=== PATIENT | female | born 1985 | race Hispanic/Latino ===

== ENCOUNTER 2017-01-21 05:24 | Emergency (ER) | payer SELFPAY ==
[~2017-01-21] VITALS: Ht 142.2 cm; Wt 65.0 kg
[~2017-01-21 05:24] MED LIST: CEPHALEXIN500 MG PO
[2017-01-21 06:01] VITALS: BP 95/60
== END 2017-01-21 06:20 | disposition left against medical advice (07) | DRG 951 ==
LOC: ED 05:24 → LWOBS 06:20
DX: Z91.19 Patient's noncompliance with other medical treatment and regimen (principal)

== ENCOUNTER 2018-12-09 14:17 | Emergency (ER) | payer SELFPAY ==
[~2018-12-09] VITALS: Ht 147.3 cm; Wt 72.7 kg
[~2018-12-09 14:17] MED LIST changes: +PRENATA3 PO
[2018-12-09] MEDS ORDERED: VANCOMYCIN HCL125 MG PO (15:41)
[2018-12-09 15:45] LABS: HEMATOCRIT 36.9 % (37.0-47.0); HEMOGLOBIN 12.7 g/dl (12.0-16.0); IMMATURE GRANULOCYTES 0.3 % (0.0-5.0); MEAN CELL VOLUME 89.1 fL CALC (80.0-100.0); MEAN CORPUSCULAR HGB 30.7 pG CALC (26.0-32.0); MEAN CORPUSCULAR HGB CONC 34.4 g/L CALC (32.0-36.0); NEUT# 4.22 thou/uL (2.00-7.15); RED BLOOD COUNT 4.14 mill/uL (4.20-5.60); RED CELL DISTRI WIDTH 12.6 % (11.5-15.5)
[2018-12-09 15:46] LABS: URINE BILIRUBIN - DIPSTICK NEGATIVE (NEGATIVE); URINE BLOOD DIPSTICK NEGATIVE (NEGATIVE); URINE COLOR YELLOW; URINE GLUCOSE - DIPSTICK NEGATIVE (NEGATIVE); URINE KETONE NEGATIVE (NEGATIVE); URINE LEUK ESTERASE NEGATIVE (NEGATIVE); URINE NITRITE - DIPSTICK NEGATIVE (Negative); URINE PROTEIN - DIPSTICK NEGATIVE (NEG-TRACE); URINE SPECIFIC GRAVITY <=1.005; URINE UROBILINOGEN - DIPSTICK 0.2 E.U./dL (0.2)
[2018-12-09 16:04] LABS: ALBUMIN 4.3 g/dL (3.2-5.0); ALKALINE PHOSPHATASE 69 u/l (38-126); ANION GAP 14 (6-22 (CALC)); BILIRUBIN, TOTAL 0.6 mg/dL (0.0-1.4); BUN 8 mg/dL (7-17); BUN/CREATININE RATIO 14 (12-20 (CALC)); CARBON DIOXIDE 24 mmol/l (22-30); CHLORIDE 103 mmol/l (95-108); CREATININE 0.6 mg/dL (0.5-1.0); GFR > 60 ML/MIN (>=60 (CALC)); GFR FOR AFR.AMER. > 60 ML/MIN (>=60 (CALC)); LIPASE 87 u/l (23-300); POTASSIUM 3.6 mmol/l (3.5-5.1); SGOT/AST 21 u/l (14-36); TOTAL PROTEIN 7.8 g/dL (6.3-8.2)
[2018-12-09 16:05] LABS: SODIUM 137 mmol/l (137-146)
[2018-12-09 17:18] VITALS: BP 113/67
== END 2018-12-09 17:26 | disposition home or self-care (01) | DRG 833 ==
LOC: ED 14:17
PROVIDERS: Emergency Medicine
DX: O26.891 Other specified pregnancy related conditions, first trimester (principal); R10.12 Left upper quadrant pain; Z3A.13 13 weeks gestation of pregnancy

== ENCOUNTER 2020-11-28 15:16 | Emergency (ER) | payer SELFPAY ==
[~2020-11-28] VITALS: Ht 147.3 cm; Wt 80.0 kg
[~2020-11-28 15:16] MED LIST changes: +VANCOMYCIN HCL125 MG PO
[2020-11-28 15:54] LABS: URINE BILIRUBIN - DIPSTICK NEGATIVE (NEGATIVE); URINE BLOOD DIPSTICK LARGE (NEGATIVE); URINE COLOR YELLOW; URINE GLUCOSE - DIPSTICK NEGATIVE (NEGATIVE); URINE KETONE NEGATIVE (NEGATIVE); URINE NITRITE - DIPSTICK NEGATIVE (Negative); URINE PROTEIN - DIPSTICK NEGATIVE (NEG-TRACE); URINE UROBILINOGEN - DIPSTICK 0.2 E.U./dL (0.2)
[2020-11-28 16:02] LABS: URINE LEUK ESTERASE LARGE (NEGATIVE)
[2020-11-28 16:17] LABS: URINE SQUAMOUS EPITHELIAL CELL FEW EPI/hpf (0-FEW); URINE WBC 20-50 WBC/hpf (0-5)
[2020-11-28] MEDS ORDERED: KEFLEX500 M1 PO (16:26)
[2020-11-28] MEDS ORDERED: PYRIDIUM200 MG PO (16:26)
[2020-11-28 16:30] VITALS: BP 106/58
== END 2020-11-28 16:30 | disposition home or self-care (01) | DRG 690 ==
LOC: ED 15:16
DX: N39.0 Urinary tract infection, site not specified (principal); B96.20 Unspecified Escherichia coli [E. coli] as the cause of diseases classified elsewhere

== ENCOUNTER 2021-05-24 17:27 | Inpatient (IN) | payer SELFPAY ==
[~2021-05-24] VITALS: Ht 147.3 cm; Wt 79.0 kg
[~2021-05-24 17:27] MED LIST changes: +KEFLEX500 M1 PO; +PYRIDIUM200 MG PO
--- NOTE | 2021-05-24 17:30 | NUR ---
PT TO ROOM VIA WHEELCHAIR FOR BEDSIDE TRIAGE.
--- NOTE | 2021-05-24 18:48 | NUR ---
PT MEDICATED PER ORDERED FOR PAIN. SOON MORPHINE WAS PUSHED PATIENT STARTED ITCHING LEFT ARM AND REDNESS APPEARING TO LEFT ARM. MLP NOTIFIED. PT DENIES ANY SOB OR TIGHTNESS IN THROAT.
[2021-05-24 18:59] LABS: HEMOGLOBIN 12.4 g/dl (12.0-16.0); IMMATURE GRANULOCYTES 0.1 % (0.0-5.0); MEAN CELL VOLUME 89.2 fL CALC (80.0-100.0); MEAN CORPUSCULAR HGB 29.9 pG CALC (26.0-32.0); MEAN CORPUSCULAR HGB CONC 33.5 g/dL CAL (32.0-36.0); NEUT# 7.1 thou/uL (2.00-7.15); RED BLOOD COUNT 4.15 mill/uL (4.20-5.60); RED CELL DISTRI WIDTH 12.8 % (11.5-15.5)
[2021-05-24 19:16] LABS: ALBUMIN 4.5 g/dL (3.2-5.0); ALKALINE PHOSPHATASE 60 u/l (38-126); AMYLASE 64 u/l (30-110); ANION GAP 16 (6-22 (CALC)); BILIRUBIN, TOTAL 0.5 mg/dL (0.0-1.4); BUN 14 mg/dL (7-17); BUN/CREATININE RATIO 20 (12-20 (CALC)); CARBON DIOXIDE 22 mmol/l (22-30); CHLORIDE 103 mmol/l (95-108); CREATININE 0.7 mg/dL (0.5-1.0); GFR > 60 ML/MIN (>=60 (CALC)); GFR FOR AFR.AMER. > 60 ML/MIN (>=60 (CALC)); LIPASE 47 u/l (23-300); POTASSIUM 3.6 mmol/l (3.5-5.1); SGOT/AST 21 u/l (14-36); SODIUM 137 mmol/l (137-146); TOTAL PROTEIN 8.6 g/dL (6.3-8.2)
[2021-05-24 20:02] LABS: URINE BILIRUBIN - DIPSTICK NEGATIVE (NEGATIVE); URINE COLOR YELLOW; URINE GLUCOSE - DIPSTICK NEGATIVE (NEGATIVE); URINE KETONE Negative (NEGATIVE); URINE PROTEIN - DIPSTICK 30 mg/dL (NEG-TRACE); URINE UROBILINOGEN - DIPSTICK 0.2 E.U./dL (0.2)
[2021-05-24 20:03] LABS: URINE BLOOD DIPSTICK SMALL (NEGATIVE); URINE LEUK ESTERASE NEGATIVE (NEGATIVE); URINE NITRITE - DIPSTICK NEGATIVE (Negative); URINE RBC 0-2 RBC/hpf (0-5); URINE SQUAMOUS EPITHELIAL CELL FEW EPI/hpf (0-FEW)
--- NOTE | 2021-05-24 20:32 | NUR ---
AT BEDSIDE TO EXPLAIN NEED FOR SURGERY ETC...PT CALLING FAMILY AND AWARE OF PENDING SURGERY
--- NOTE | 2021-05-24 21:45 | NUR ---
OR STAFF AT BEDSIDE PT TO OR VIA STRETCHER.
[2021-05-24 23:50] VITALS: BP 99/61
[2021-05-25] VITALS (11 sets, daily range): BP systolic 85–102; BP diastolic 50–64
--- NOTE | 2021-05-25 00:30 | NUR ---
PATIENT ADMITTED FROM PACU VIA BED WITH PACU STAFF IN ATTENDANCE. PATIENT IS DROWSY BUT AROUSABLE. PATIENT WITH 2 SMALL INCISIONS AND ONE LARGER INCISION TO THE UMBILICUS INTACT WITH DERMABOND WITH NO DRAINAGE NOTED. ABD BINDER APPLIED. ABD IS SOFT WITH HYPOACTIVE BS. O2 VIA NASAL CANNULA IN PLACE AT 2LPM-O2 SATS IS 100%. LUNGS ARE CLEAR. RESP ARE SHALLOW-ENCOURAGED DEEP BREATHING EXERCISES. NPO EXCEPT FOR ICE CHIPS. IV SITE TO LAC INTACT WITH IVF PATENT AND INFUSING AT 150CC/HR. ZOSYN HUNG ORDERED. PATIENT DENIES ANY PAIN AT THIS TIME.JEAN-PIERRE SCD'S APPLIED. NO PERIPHERAL EDEMA NOTED. PULSES ARE PALPABLE. PATIENT IS WELSH SPEAKING ONLY. CAYDEN RN HERE TO TRANSLATE. INSTRUCTED ON USE OF IS Q1H WHILE AWAKE IN REPS OF 10. PATIENT ORIENTED TO ROOM AND SURROUNDINIGS. SAFETY PRECAUTIONS REINFORCED. INSTRUCTED ON USE OF NURSE CALL LIGHT SYSTEM, TV REMOTE AND PHONE. CALL LIGHT IN REACH. WILL CONT TO MONITOR.
--- NOTE | 2021-05-25 04:30 | NUR ---
PATIENT AWAKE ALERT AND WITH NO COMPLAINTS AT THIS TIME. PATIENT ASSISTED OOB TO THE BR TO VOID AND THEN BACK TO BED. IVF PATENT AND INFUSING AT 150CC/HR VIA LAC SITE. SITE REMAINS HELATHY WITH GOOD BLOOD RETURN. ABD BINDER IN PLACE. SCD'S IN PLACE. TAKING PO ICE CHIPS WITHOUT ANY DIFFICULTY. ASKING FOR PO FLUIDS. EXPLAINED ONLY ICE CHIPS AT THIS TIME. DENIES ANY PAIN AT THIS TIME. CALL LIGHT IN REACHW. WILL CONT TO MONITOR.
--- NOTE | 2021-05-25 07:00 | NUR ---
SHIFT CHANGE REPORT, PT AWAKE ALERT AND ORIENTED LYING IN SUPINE POSITION, C/O ABD PAIN @ 4/10, INCISION/PUNCTURE X 3 INTACT WITH DERMABOND ABD BINDER IN PLACE, IVF INFUSING, SCD IN PLACE, CALL HOLLINGSWORTH IN REACH AND BED LOCKED IN LOWEST POSITION.
--- NOTE | 2021-05-25 12:00 | NUR ---
RESTING IN BED, NO NEW COMPLAINS, ASSISTED TO BR AND BACK TO BED, FULL LIQUID MEAL OFFERED PER ORDER, APPETITE POOR AT THIS TIME BUT ENCOURAGED TO DRINK FLUIDS IN SMALL AMOUNTS, WILL CONTINUE TO MONITOR.
--- NOTE | 2021-05-25 16:00 | NUR ---
RESTING IN BED, GETS UP WITH SUPERVISION AND AMBULATES TO BR, ALL NEEDS ADDRESSED.
--- NOTE | 2021-05-25 19:10 | NUR ---
REPORT RECEIVED FROM Yolette BREWER RN.
--- NOTE | 2021-05-25 19:15 | NUR ---
PATIENT RESTING COMFORTABLY, WITH AT BEDSIDE.
--- NOTE | 2021-05-25 19:45 | NUR ---
PATIENT ALERT AND ORIENTED X3, SPANIHS SPEAKING ONLY. #20 IN THE LEFT AC INFUSING D5, 1/5 NS AT 125ML/HR. PATIENT COMPLAINS OF PAIN 4/10 BUT WOULD NOT LIKE TO MEDICATE AT THIS TIME. ABDOMINAL BINDER IN PLACE. NORMAL HEART SOUNDS, CLEAR LUNG LARRY BILATERALLY, HYPOACTIVE BOWEL SOUNDS. PATIENT REPORTS FEELING A LOT OF GAS IN HER STOMACH, PATIENT ENCOURAGED TO WALK. PLAN OF CARE REVIWED AT THIS TIME, CALL LIGHT AND BEDSIDE TABLE WITHIN REACH
--- NOTE | 2021-05-25 22:53 | NUR ---
PATIENT REQUESTED WRITTER ASSIST HER TO THE BATHROOM AT THIS TIME. STAND BY ASSIST PROVIDED.
--- NOTE | 2021-05-26 00:05 | NUR ---
ANTIBIOTIC AND PAIN MEDICATION PER EMAR, SEE EMAR
[2021-05-26 04:00] VITALS: BP 99/64
--- NOTE | 2021-05-26 04:56 | NUR ---
PATIENT RESTING COMFORTABLY, CALL LIGHT AND BEDSIDE TABLE WITHIN REACH.
--- NOTE | 2021-05-26 06:01 | NUR ---
MEDIATED PATIENT PER EMAR, SEE EMAR
[2021-05-26] MEDS ORDERED: PERCOCET 5/325M1 TAB PO (07:27)
--- NOTE | 2021-05-26 08:00 | NUR ---
SHIFT CHANGE REPORT, PT AWAKE ALERT AND ORIENTED LYING IN SUPINE POSITION, REPORTS ABD PAIN @ 4/10, IVF INFUSING, CALL HOLLINGSWORTH IN REACH. DR JONES ROUNDED WITH PT BUT SHE COULD NOT TELL NURSE WHAT THE MD TOLD HER, WILL CONTINUE TO MONITOR AND ASSESS NEEDS.
--- NOTE | 2021-05-26 13:13 | NUR ---
Discharge instructions given. Patient verbalizes understanding of same. Discharged in fair condition via Wheelchair to Home with family. All belongings sent with pt.
== END 2021-05-26 13:30 | disposition home or self-care (01) | DRG 355 ==
LOC: ED 17:27 → ED-I 19:58 → ED 20:23 → MS2 20:24
PROVIDERS: ADMIT Surgery; ATTEND Internal Medicine
PROC: 0WQF0ZZ Repair Abdominal Wall, Open Approach (ICD-10-PCS; principal; 2021-05-24)
PROC: 0WJF4ZZ Inspection of Abdominal Wall, Percutaneous Endoscopic Approach (ICD-10-PCS; 2021-05-24)
PROC: 0DQV0ZZ Repair Mesentery, Open Approach (ICD-10-PCS; 2021-05-24)
DX: K43.6 Other and unspecified ventral hernia with obstruction, without gangrene (principal); Z20.822 Contact with and (suspected) exposure to COVID-19
CPT/HCPCS: J2710

== ENCOUNTER 2021-12-13 09:13 | Emergency (ER) | payer BC ==
[~2021-12-13] VITALS: Ht 147.3 cm; Wt 64.0 kg
[~2021-12-13 09:13] MED LIST changes: +PERCOCET 5/325M1 TAB PO
[2021-12-13 09:30] VITALS: BP 112/68
[2021-12-13 10:56] LABS: URINE BILIRUBIN - DIPSTICK NEGATIVE (NEGATIVE); URINE BLOOD DIPSTICK TRACE-INTACT (NEGATIVE); URINE COLOR YELLOW; URINE GLUCOSE - DIPSTICK NEGATIVE (NEGATIVE); URINE KETONE 40 mg/dL (NEGATIVE); URINE LEUK ESTERASE TRACE (NEGATIVE); URINE PROTEIN - DIPSTICK NEGATIVE (NEG-TRACE); URINE SPECIFIC GRAVITY >=1.030; URINE UROBILINOGEN - DIPSTICK 0.2 E.U./dL (0.2)
[2021-12-13 11:00] LABS: URINE NITRITE - DIPSTICK NEGATIVE (Negative)
[2021-12-13] MEDS ORDERED: DOXY-CAPS100 MG PO (11:26)
[2021-12-13] MEDS ORDERED: PYRIDIUM200 MG PO (11:26)
== END 2021-12-13 11:49 | disposition home or self-care (01) | DRG 690 ==
LOC: ED 09:13
PROVIDERS: Emergency Medicine
DX: N39.0 Urinary tract infection, site not specified (principal)

== ENCOUNTER 2022-01-27 15:44 | Emergency (ER) | payer BC ==
[~2022-01-27] VITALS: Ht 147.3 cm; Wt 44.0 kg
[~2022-01-27 15:44] MED LIST changes: +DOXY-CAPS100 MG PO
[2022-01-27] MEDS ORDERED: AMOXICILLIN500 M2 PO (18:32)
[2022-01-27 18:47] VITALS: BP 109/73
== END 2022-01-27 18:56 | disposition home or self-care (01) | DRG 153 ==
LOC: ED 15:44
DX: J02.0 Streptococcal pharyngitis (principal); Z20.822 Contact with and (suspected) exposure to COVID-19

== ENCOUNTER 2022-04-11 10:19 | Emergency (ER) | payer BC ==
[~2022-04-11] VITALS: Ht 147.3 cm; Wt 72.0 kg
[~2022-04-11 10:19] MED LIST changes: +AMOXICILLIN500 M2 PO
[2022-04-11] MEDS ORDERED: ZPAK PO (12:58)
[2022-04-11 14:16] LABS: TSH, 3RD GENERATION 1.75 uIU/mL (0.47 - 4.68)
[2022-04-11 14:33] VITALS: BP 111/77
[2022-04-11] MEDS ORDERED: CHERATUSSIN PO (14:38)
== END 2022-04-11 14:51 | disposition home or self-care (01) | DRG 153 ==
LOC: ED 10:19
PROVIDERS: Family Medicine
DX: J06.9 Acute upper respiratory infection, unspecified (principal); Z20.822 Contact with and (suspected) exposure to COVID-19

== ENCOUNTER 2022-06-06 13:43 | Emergency (ER) | payer BC ==
[~2022-06-06] VITALS: Ht 147.3 cm; Wt 72.7 kg
[~2022-06-06 13:43] MED LIST changes: +CHERATUSSIN PO; +ZPAK PO
[2022-06-06 15:57] LABS: URINE BILIRUBIN - DIPSTICK NEGATIVE (NEGATIVE); URINE BLOOD DIPSTICK NEGATIVE (NEGATIVE); URINE COLOR YELLOW; URINE GLUCOSE - DIPSTICK NEGATIVE (NEGATIVE); URINE KETONE NEGATIVE (NEGATIVE); URINE LEUK ESTERASE NEGATIVE (NEGATIVE); URINE PH 5.5 (4.5-8.0); URINE PROTEIN - DIPSTICK NEGATIVE (NEG-TRACE); URINE SPECIFIC GRAVITY >=1.030; URINE UROBILINOGEN - DIPSTICK 0.2 E.U./dL (0.2)
[2022-06-06 16:01] LABS: URINE NITRITE - DIPSTICK NEGATIVE (Negative)
[2022-06-06 16:05] VITALS: BP 111/76
[2022-06-06 16:30] VITALS: BP 113/74
[2022-06-06 17:03] LABS: HEMATOCRIT 36.7 % (37.0-47.0); HEMOGLOBIN 12.3 g/dl (12.0-16.0); IMMATURE GRANULOCYTES 0.2 % (0.0-5.0); MEAN CELL VOLUME 89.5 fL CALC (80.0-100.0); MEAN CORPUSCULAR HGB CONC 33.5 g/dL CAL (32.0-36.0); NEUT# 2.43 thou/uL (2.00-7.15); RED BLOOD COUNT 4.1 mill/uL (4.20-5.60); RED CELL DISTRI WIDTH 12.9 % (11.5-15.5)
[2022-06-06 17:12] LABS: ALBUMIN 4.3 g/dL (3.2-5.0); ALKALINE PHOSPHATASE 65 u/l (38-126); ANION GAP 11 (6-22 (CALC)); BILIRUBIN, TOTAL 0.5 mg/dL (0.0-1.4); BUN 13 mg/dL (7-17); BUN/CREATININE RATIO 23 (12-20 (CALC)); CARBON DIOXIDE 26 mmol/l (22-30); CHLORIDE 106 mmol/l (95-108); CREATININE 0.6 mg/dL (0.5-1.0); GFR FOR AFR.AMER. > 60 ML/MIN (>=60 (CALC)); GFR OTHER RACES > 60 ML/MIN (>=60 (CALC)); LIPASE 73 u/l (23-300); POTASSIUM 3.5 mmol/l (3.5-5.1); SODIUM 139 mmol/l (137-146); TOTAL PROTEIN 8.1 g/dL (6.3-8.2)
[2022-06-06 17:14] LABS: SGOT/AST 39 u/l (14-36)
[2022-06-06] MEDS ORDERED: NAPROXEN500 MG PO (18:55)
[2022-06-06 18:57] VITALS: BP 111/76
== END 2022-06-06 19:04 | disposition home or self-care (01) | DRG 392 ==
LOC: ED 13:43
PROVIDERS: Family Medicine; Nurse Practitioner
DX: R10.9 Unspecified abdominal pain (principal)

== ENCOUNTER 2022-07-19 17:47 | Emergency (ER) | payer BC ==
[~2022-07-19] VITALS: Ht 147.3 cm; Wt 72.7 kg
[~2022-07-19 17:47] MED LIST changes: +NAPROXEN500 MG PO
[2022-07-19 18:36] LABS: HEMATOCRIT 38.6 % (37.0-47.0); HEMOGLOBIN 13.4 g/dl (12.0-16.0); MEAN CELL VOLUME 86.2 fL CALC (80.0-100.0); MEAN CORPUSCULAR HGB 29.9 pG CALC (26.0-32.0); MEAN CORPUSCULAR HGB CONC 34.7 g/dL CAL (32.0-36.0); NEUT# 0.99 thou/uL (2.00-7.15); RED BLOOD COUNT 4.48 mill/uL (4.20-5.60); RED CELL DISTRI WIDTH 12.6 % (11.5-15.5)
[2022-07-19 20:12] VITALS: BP 126/88
== END 2022-07-19 20:40 | disposition home or self-care (01) | DRG 153 ==
LOC: ED 17:47
PROVIDERS: Family Medicine
DX: J06.9 Acute upper respiratory infection, unspecified (principal); Z20.822 Contact with and (suspected) exposure to COVID-19

== ENCOUNTER 2022-10-07 16:46 | Emergency (ER) | payer BC ==
[~2022-10-07] VITALS: Ht 147.3 cm; Wt 63.0 kg
[2022-10-07 17:29] VITALS: BP 123/71
[2022-10-07] MEDS ORDERED: DEXAMETHASON6 MG PO (19:21)
[2022-10-07] MEDS ORDERED: AMOX/K CLAV875 M1 PO (19:21)
[2022-10-07 20:00] VITALS: BP 123/71
== END 2022-10-07 20:00 | disposition home or self-care (01) | DRG 153 ==
LOC: ED 16:46
DX: J02.9 Acute pharyngitis, unspecified (principal); Z20.822 Contact with and (suspected) exposure to COVID-19

== ENCOUNTER 2023-11-27 18:38 | Emergency (ER) | payer BC ==
[~2023-11-27] VITALS: Ht 147.3 cm; Wt 81.6 kg
[~2023-11-27 18:38] MED LIST changes: +AMOX/K CLAV875 M1 PO; +DEXAMETHASON6 MG PO
[2023-11-27] MEDS ORDERED: PRENATA3 PO (19:16)
[2023-11-27 19:40] LABS: URINE BILIRUBIN - DIPSTICK Negative (NEGATIVE); URINE BLOOD DIPSTICK Negative (NEGATIVE); URINE GLUCOSE - DIPSTICK Negative (NEGATIVE); URINE KETONE Negative (NEGATIVE); URINE LEUK ESTERASE Trace (NEGATIVE); URINE NITRITE - DIPSTICK Negative (Negative); URINE PROTEIN - DIPSTICK Negative (NEG-TRACE); URINE UROBILINOGEN - DIPSTICK 0.2 E.U./dL (0.2)
[2023-11-27 19:42] LABS: URINE COLOR Yellow
[2023-11-27 20:15] VITALS: BP 101/63
== END 2023-11-27 20:47 | disposition home or self-care (01) | DRG 833 ==
LOC: ED 18:38
PROVIDERS: Family Medicine
DX: O9A.213 Injury, poisoning and certain other consequences of external causes complicating pregnancy, third trimester (principal); S39.012A Strain of muscle, fascia and tendon of lower back, initial encounter; Z3A.37 37 weeks gestation of pregnancy; W50.0XXA Accidental hit or strike by another person, initial encounter

== ENCOUNTER 2024-08-03 15:09 | Emergency (ER) | payer SELFPAY ==
[2024-08-03] VITALS (10 sets, daily range): BP systolic 75–112; BP diastolic 40–71
[~2024-08-03] VITALS: Ht 147.3 cm; Wt 68.2 kg
[2024-08-03] MEDS ORDERED: KETOROLAC TROMETHAMINE 30 MG/ML SDV IM ONE (15:35)
[2024-08-03 16:13] LABS: URINE BILIRUBIN - DIPSTICK Negative (NEGATIVE); URINE BLOOD DIPSTICK Trace-intact (NEGATIVE); URINE GLUCOSE - DIPSTICK Negative (NEGATIVE); URINE KETONE Negative (NEGATIVE); URINE NITRITE - DIPSTICK Negative (Negative); URINE PROTEIN - DIPSTICK Negative (NEG-TRACE); URINE SPECIFIC GRAVITY 1.015; URINE UROBILINOGEN - DIPSTICK 0.2 E.U./dL (0.2)
[2024-08-03 16:15] LABS: URINE COLOR Yellow; URINE LEUK ESTERASE Moderate (NEGATIVE)
[2024-08-03 16:21] LABS: URINE RBC 0-2 RBC/hpf (0-5); URINE SQUAMOUS EPITHELIAL CELL MODERATE EPI/hpf (0-FEW)
[2024-08-03 17:05] LABS: BASO% 0.4 % (0-3); EOS% 1.8 % (0-8); HEMATOCRIT 35.7 % (37.0-47.0); HEMOGLOBIN 12.4 g/dl (12.0-16.0); IMMATURE GRANULOCYTES 0.2 % (0.0-5.0); LYMPH% 36.6 % (15-41); MEAN CORPUSCULAR HGB 29.9 pG CALC (26.0-32.0); MEAN CORPUSCULAR HGB CONC 34.7 g/dL CAL (32.0-36.0); MONO% 10.5 % (2-13); NEUT# 2.56 thou/uL (2.00-7.15); NEUT% 50.5 % (42-76); RED BLOOD COUNT 4.15 mill/uL (4.20-5.60); RED CELL DISTRI WIDTH 12.9 % (11.5-15.5)
[2024-08-03 17:21] LABS: ALBUMIN 4.5 g/dL (3.2-5.0); BILIRUBIN, TOTAL 0.6 mg/dL (0.02-1.3); CREATININE 0.6 mg/dL (0.5-1.0); POTASSIUM 3.9 mmol/l (3.5-5.1); TOTAL PROTEIN 7.7 g/dL (6.3-8.2)
[2024-08-03] MEDS ORDERED: CIPROFLOXACN500 MG PO (19:37)
[2024-08-03] MEDS ORDERED: METHOCARBAMOL500 MG PO (19:37)
[2024-08-06] MEDS ORDERED: MACROBID100 M1 PO (14:53)
== END 2024-08-03 20:28 | disposition home or self-care (01) | DRG 552 ==
LOC: ED 15:09
PROVIDERS: Nurse Practitioner Family
DX: M54.2 Cervicalgia (principal); M54.50 Low back pain, unspecified; S70.372A Other superficial bite of left thigh, initial encounter; W54.0XXA Bitten by dog, initial encounter; R82.71 Bacteriuria